=== PATIENT | female | born 1960 | race Two or more races ===

== ENCOUNTER → 2023-07-06 04:51 | Emergency (ER) | payer OTHER ==
[~2023-07-06] VITALS: Ht 165.1 cm; Wt 87.0 kg
[~2023-07-06 04:51] MED LIST: CEFD300C2 PO
[2023-07-06 05:05] VITALS: BP 132/67; PULSE 72; RESP 16; TEMP 97.8; O2SAT 96
== END | disposition home or self-care (01) ==
LOC: ER 04:51
DX: T16.1XXA Foreign body in right ear, initial encounter (principal); E11.9 Type 2 diabetes mellitus without complications; Z79.899 Other long term (current) drug therapy; Z88.1 Allergy status to other antibiotic agents; X58.XXXA Exposure to other specified factors, initial encounter; Y93.89 Activity, other specified; Y92.89 Other specified places as the place of occurrence of the external cause; Y99.8 Other external cause status
CPT/HCPCS: 69200